=== PATIENT | male | born 1960 | race Caucasian/White ===

== ENCOUNTER 2022-03-15 07:12 | Emergency (ER) | payer BC, SELFPAY ==
[2022-03-15 07:22] VITALS: BP 126/73; PULSE 66; RESP 18; TEMP 36.5; O2SAT 99; BMI 22.6
[2022-03-15 07:30] VITALS: BP 118/71; PULSE 61; RESP 17; O2SAT 100
--- NOTE | 2022-03-15 07:32 | XR_ITS ---
FINAL REPORT CLINICAL HISTORY: right knee pain, no known injury FINDINGS: Three views of the right knee reveal no evidence of fracture or dislocation. The bony alignment is normal. The joint spaces are preserved. There is no evidence of joint effusion. No localized soft tissue abnormality is identified. IMPRESSION: No acute abnormality identified. Reviewed, Interpreted and Dictated by Delbert Cardona III, MD Transcribed by Alana Owusu Authenticated and [facility]
--- NOTE | 2022-03-15 07:39 | PC.NURSE ---
PT TO XR AT THIS TIME
--- NOTE | 2022-03-15 07:47 | PC.NURSE ---
RETURNED FROM XR
[2022-03-15 08:00] VITALS: BP 113/70; PULSE 75; RESP 17; O2SAT 100
--- NOTE | 2022-03-15 08:25 | HMH.EDGENADL ---
ED Disposition Clinical Impression: Right knee pain Qualifiers: Chronicity: acute Qualified Code(s): M25.561 - Pain in right knee Disposition: Home, Self-Care Condition on Discharge: Good Instructions: DI for Knee Pain, How to Use Crutches, How to Use a Knee Immobilizer Additional Instructions: Knee immobilizer and crutches. Follow-up with orthopedics, Dr. Posey, call for appointment. Tylenol as needed for pain. Referrals: Murali Ritchie [Primary Care Provider] - Waqar Posey JR, MD [Physician] - - Critical Care Critical Care Time: No Attestation: On 03/15/22, the high probability of a clinically significant, sudden or life threatening deterioration of the following system(s) required my full and direct attention, intervention and personal management. The time I documented below is in addition to time spent performing reported procedures but includes the following listed in this critical care notation. Medical Decision Making - Nir Inquiry Pt receiving controlled substance: No Vital Signs: 03/15/22 07:22 03/15/22 07:30 03/15/22 08:00 Temperature 97.7 F Temperature Source Oral Pulse Rate 61 75 Pulse Rate [Brachial] 66 Respiratory Rate 18 17 17 Blood Pressure 118/71 113/70 Blood Pressure [Left Arm] 126/73 Blood Pressure Mean 98 92 Blood Pressure Mean [Left Arm] 90 Blood Pressure Source [Left Arm] Automatic Cuff Blood Pressure Position [Left Arm] Sitting 02 Sat by Pulse Oximetry 99 100 100 Oxygen Delivery Method Room Air 03/15/22 08:31 03/15/22 09:00 Temperature Temperature Source Pulse Rate 67 61 Pulse Rate [Brachial] Respiratory Rate 16 16 Blood Pressure 107/73 L 126/75 Blood Pressure [Left Arm] Blood Pressure Mean 86 89 Blood Pressure Mean [Left Arm] Blood Pressure Source [Left Arm] Blood Pressure Position [Left Arm] 02 Sat by Pulse Oximetry 100 100 Oxygen Delivery Method Orders (Tests/Meds): ORDERS Category Date Time Status Knee XR right 3 views [XR knee RT 3V] Stat Exams 03/15/22 07:32 Taken - US Data US Images: Lower Extremity Findings Narrative: As per [facility] procedure, doppler report received from field evidence technician: Negative for DVT Medical Decision Narrative: I suspect patient's pain is related to a lateral meniscus and and/or lateral collateral ligament General Adult HPI - General Chief complaint: PAIN Stated complaint: right leg pain Time Seen by Provider: 03/15/22 08:26 Mode of Arrival: Ambulatory Limitations: No Limitations Description of Symptoms (Recalled from ER Triage Doc. by RN): PT WITH C/O PAIN BEHIND RIGHT KNEE AND LATERAL SIDE. NO INJURY. PAIN STARTED YESTERDAY. PT REPORTS UNABLE TO BEND KNEE - History of Present Illness HPI narrative: Woke up yesterday with pain in his right popliteal and lateral knee area. No injury or unusual activity. States the pain is progressed for now is not able to walk. It hurts to try to bend his knee. No swelling of the knee or leg noted. No fever. No previous problems with his knee. No history of thromboembolic disease, recent surgery, recent travel, recent hospitalizations. He is not having any pain here at rest, says it just hurts to move it. No [id number] medications taken for pain. - Related Data Allergies Allergy/AdvReac Type Severity Reaction Status Date / Time No Known Allergies Allergy Verified 03/15/22 07:32 [facility] History - Hepatitis A Screen Attestation statement:: This patient has been screened for Hepatitis A risk factors. I have reviewed the patient's past medical history: Yes ROS Obtained: Yes Systems reviewed as appropriate & no additional complaints - Constitutional Constitutional: Denies fever(s) - Cardiovascular Cardiovascular: Denies chest pain - Respiratory Respiratory: Denies shortness of breath - Musculoskeletal Musculoskeletal: Reports as per HPI, Reports joint pain (R knee) - Neurologic Neurologic: Denies num
--- NOTE | 2022-03-15 08:29 | PC.NURSE ---
ER AT BEDSIDE
[2022-03-15 08:31] VITALS: BP 107/73; PULSE 67; RESP 16; O2SAT 100
--- NOTE | 2022-03-15 08:33 | CA_ITS ---
FINAL REPORT TECHNIQUE: Color Doppler, duplex Doppler and compression sonography of the right lower extremity venous system was performed. CLINICAL HISTORY: PAIN LATERAL AND BACK OF RIGHT KNEE SINCE YESTERDAY, NKI,PT ON BLOODTHINER FINDINGS: There is no evidence of deep venous thrombosis from the level of the groin to the calf. The veins are patent and compressible. IMPRESSION: No evidence of deep venous thrombosis right lower extremity. Reviewed, Interpreted and Dictated by Delbert Cardona III, MD Transcribed by Brandon Carrasco Authenticated and [facility]
--- NOTE | 2022-03-15 08:33 | PC.NURSE ---
checked on pt at this time, no new needs at this time
--- NOTE | 2022-03-15 08:36 | PC.NURSE ---
VASCULAR LAB NOTIFIED OF DOPPLER ORDER
[2022-03-15 09:00] VITALS: BP 126/75; PULSE 61; RESP 16; O2SAT 100
--- NOTE | 2022-03-15 09:07 | PC.NURSE ---
PT PLACED IN GOWN FOR DOPPLER
--- NOTE | 2022-03-15 09:17 | PC.NURSE ---
INSTITUTIONAL NUTRITION CONSULTANT AT BEDSIDE FOR DOPPLER
--- NOTE | 2022-03-15 09:22 | PC.NURSE ---
PT RETURNED FROM XR
--- NOTE | 2022-03-15 09:40 | PC.NURSE ---
0940 PT PLACED IN KNEE IMMOBILIZER, PROPER USE OF CRUTCHES OBSERVED. PT WITHOUT NEEDS AT THIS TIME
[2022-03-15 09:45] VITALS: BP 118/79; PULSE 63; RESP 18; TEMP 36.6; O2SAT 100
== END 2022-03-15 09:45 | disposition home or self-care (01) ==
PROVIDERS: Emergency Provider Emergency Medicine; PCP Internal Medicine Addiction Medicine
DX: M25.561 Pain in right knee (principal)
CPT/HCPCS: 29505; 73562; 93971; 99283

== ENCOUNTER 2022-03-22 13:01 | Outpatient (RCR) | payer BC, SELFPAY | END 2022-03-22 14:00 | disposition home or self-care (01) | LOC: PT 13:01 | PROVIDERS: Visit Provider Orthopaedic Surgery | DX: M25.561 Pain in right knee (principal) ==